=== PATIENT | female | born 1990 | race Caucasian/White ===

== ENCOUNTER 2018-08-07 00:18 | Emergency (ER) | payer OTHER ==
--- NOTE | 2018-08-07 00:32 | EDM.PDOC ---
ED HPI GENERAL MEDICAL PROBLEM - General Chief Complaint: Lower Extremity Injury/Pain Stated Complaint: FALL VIA [place] Time Seen by Provider: 08/07/18 00:32 Source of Information: Reports: Patient History Limitations: Reports: No Limitations - History of Present Illness INITIAL COMMENTS - FREE TEXT/NARRATIVE: pt arrived because she fell in the ice catle and thought she broke her leg. Onset: Today, Sudden Duration: Hour(s): Location: Reports: Other (pt has pain in the mid tib fib area. 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, IV/IO, See EMS Report, Splint(s) Left Lower Leg Pain Score (Numeric/FACES): 3 - Related Data Allergies Allergy/AdvReac Type Severity Reaction Status Date / Time No Known Allergies Allergy Verified 08/07/18 00:30 Home Meds: Home Meds NK [No Known Home Meds] 08/07/18 [History] Review of Systems - Review of Systems Review Of Systems: See Below Constitutional: Reports: No Symptoms Eyes: Reports: No Symptoms Ears: Reports: No Symptoms Nose: Reports: No Symptoms Mouth/Throat: Reports: No Symptoms Respiratory: Reports: No Symptoms Cardiovascular: Reports: No Symptoms GI/Abdominal: Reports: No Symptoms Musculoskeletal: Reports: Other (has pain in the mid tib fib area. ) ED EXAM, GENERAL - Physical Exam Exam: See Below Free Text/Narrative:: pt arrived very lethargic. and after she was here briefly she was not arousable. Exam Limited By: No Limitations General Appearance: Alert, Other (pt is having pain in the mid tib fib area on the left. ) Ears: Normal TMs Nose: Normal Inspection Throat/Mouth: Normal Inspection Head: Atraumatic Neck: Normal Inspection Respiratory/Chest: No Respiratory Distress Cardiovascular: Regular Rate, Rhythm GI/Abdominal: Soft, Non-Tender (Female) Exam: Deferred Rectal (Female) Exam: Deferred Back Exam: Normal Inspection Extremities: Other (pt has an abrasion on the front of her left lower leg. She is complaining of pain in the front of her leg. ) Neurological: Alert, Oriented, Normal Cognition Psychiatric: Anxious Course - Vital Signs Last Recorded V/S: Last Vital Signs Temp 36.6 C 08/07/18 00:21 Pulse 86 08/07/18 00:21 Resp 14 08/07/18 00:21 BP 118/77 08/07/18 00:21 Pulse Ox 100 08/07/18 00:21 - Orders/Labs/Meds Orders: Active Orders 24 hr Category Date Time Status Vaccines to be Administered [RC] PER UNIT ROUTINE Care 08/07/18 01:10 Active Meds: Medications Discontinued Medications Generic Name Dose Route Start Last Admin Trade Name Rhianna PRN Reason Stop Dose Admin Bacitracin 1 dose 08/07/18 01:09 08/07/18 01:20 Bacitracin Oint 1 Gm TOP 08/07/18 01:10 1 dose ONETIME ONE Administration Diphtheria/Tetanus/Acell Pertussis 0.5 ml 08/07/18 01:10 08/07/18 01:22 Adacel IM 08/07/18 01:11 0.5 ml .ONCE ONE Administration - Re-Assessments/Exams Free Text/Narrative Re-Assessment/Exam: 08/07/18 01:06 xrays of the ankle tib-fib and her knee were obtained. No derfinite fractures were obtained. 08/07/18 01:08 08/07/18 01:08 pt was not current with her tetanus so she was given booster. bacatracin was applied to the abrasion Departure - Departure Time of Disposition: 01:35 Disposition: Home, Self-Care 01 Condition: Fair Clinical Impression: Contusion of left leg, Abrasion of left leg - Discharge Information Instructions: Crutch Use, Adult, [id number] Referrals: PCP,None [Primary Care Provider] - Forms: ED Department Discharge Care Plan Goals: crutches, tylenol and motrin for pain. bacatracin to tjhe ant leg. - My Orders Last 24 Hours: My Active Orders 08/07/18 01:10 Vaccines to be Administered [RC] PER UNIT ROUTINE - Assessment/Plan Last 24 Hours: My Active Orders 08/07/18 01:10 Vaccines to be Administered [RC] PER UNIT ROUTINE
[2018-08-07] MEDS ORDERED: Bacitracin Oint 1 GM U/D Packet TOP ONE (01:09)
[2018-08-07] MEDS ORDERED: Diphtheria,Pertussis(Acell),Tetanus Vaccine 0.5 ML SDV IM ONE (01:10)
--- NOTE | 2018-08-07 01:12 | CRLCR ---
Indication: Injury Technique: Three views left ankle Comparison: None Findings: Bones: Alignment is normal. No fractures or bone lesions. Joint spaces: Unremarkable. Soft tissues: Unremarkable. Impression: Negative. Dictated by Alison Bay MD @ Aug 07 2018 1:10AM Signed by Dr. Alison Bay @ Aug 07 2018 1:12AM
--- NOTE | 2018-08-07 01:14 | CRLCR ---
Indication: Injury Technique: Two views left tibia and fibula Comparison: None Findings: Bones: Alignment is normal. No fractures or bone lesions. Joint spaces: Unremarkable. Soft tissues: Unremarkable. Impression: Negative. Dictated by Alison Bay MD @ Aug 07 2018 1:12AM Signed by Dr. Alison Bay @ Aug 07 2018 1:13AM
--- NOTE | 2018-08-07 01:16 | CRLCR ---
Indication: Injury Technique: Three views left knee Comparison: None Findings: Bones: Alignment is normal. No fractures or bone lesions. Joint spaces: Unremarkable. Soft tissues: Unremarkable. Impression: Negative. Dictated by Alison Bay MD @ Aug 07 2018 1:13AM Signed by Dr. Alison Bay @ Aug 07 2018 1:14AM
== END 2018-08-07 01:38 | disposition home or self-care (01) ==
LOC: JP.ED 00:18
DX: S80.12XA Contusion of left lower leg, initial encounter (principal); Z23 Encounter for immunization; W00.0XXA Fall on same level due to ice and snow, initial encounter
CPT/HCPCS: 73562-LT; 73590-LT; 73610-LT; 90471; 90715; 99284-25